=== PATIENT | female | born 1990 | race American Indian/Alaskan Native ===

== ENCOUNTER 2016-09-05 10:30 | Emergency (ER) | payer MEDICAID ==
[2016-09-05 10:40] VITALS: BP 107/64
[2016-09-05] MEDS ORDERED: TYLENOL PO ONE (10:50)
--- NOTE | 2016-09-05 10:55 | Emergency Department Report ---
Entered by SHIRLEY HOFFMAN, acting as scribe for SID MARROQUIN PA. Chief Complaint: Vaginal Bleeding Stated Complaint: 7 WKS PREGN/VAG BLEEDING Time Seen by Provider: 09/05/16 10:46 - HPI History of Present Illness: Pt that is 7 weeks c/o light vaginal bleeding with small clots for 2 days. Reports back pain and abdominal cramping Denies discharge, dysuria, nausea, and vomiting . Last was a and gave to twins. - ROS Review of Systems: All systems are negative unless stated in HPI above. - Exam Vital Signs: Vital Signs 09/05/16 10:36 Temperature 98.4 F Pulse Rate 81 Respiratory 16 Rate Blood Pressure 107/64 O2 Sat by Pulse 99 Oximetry Physical Exam: General: 25 y/o female that is well nourished, well developed, nontoxic in appearance, and in no acute distress Cardiovascular: Regular rate and rhythm Respiratory: Clear to auscultation bilaterally, no rhonchi, wheezes, or rales. Normal work of breathing. No use of accessory muscles Abdomen: nontender, nondistended, normal bowel sounds in all quadrants. No CVA tenderness MSE screening note: Focused history and physical exam performed. Due to findings the following was ordered: Patient will have bloodwork, U/S and urine ordered and placed on Main Side for further evaluation. ED Medical Decision Making - Medical Decision Making Patient seen by provider in triage area. ED Disposition for MSE Condition: Stable This documentation as recorded by the scribe,SHIRLEY HOFFMAN,accurately reflects the service I personally performed and the decisions made by ,SID MARROQUIN PA.
[2016-09-05 11:08] LABS: Basophils % (Auto) 0.9 % (0.0-1.8); Eosinophils % (Auto) 0.9 % (0.0-4.3); Hematocrit 34.9 % (30.3-42.9); Hemoglobin 11.6 gm/dl (10.1-14.3); Mean Corpuscular HGB Conc 33 % (30-34); Mean Corpuscular Hemoglobin 28 pg (28-32); Mean Corpuscular Volume 84 fl (79-97); Platelet Count 208 K/mm3 (140-440); Red Blood Count 4.17 M/mm3 (3.65-5.03); Red Cell Distribution Width 13.3 % (13.2-15.2)
[2016-09-05 11:43] LABS: Bilirubin,Urine NEG (Negative); Blood,Urine MOD (Negative); Ketones,Urine NEG (Negative); Leukocyte Esterase,Urine NEG (Negative); Mucus,Urine FEW /HPF; Nitrite,Urine NEG (Negative); Protein,Urine <15 mg/dL mg/dL (Negative); Urobilinogen,Urine < 2.0 mg/dL (<2.0)
[2016-09-05 12:23] LABS: Anion Gap 21 mmol/L; BUN/Creatinine Ratio 16.66; Blood Urea Nitrogen 10 mg/dL (7-17); Calcium 9.4 mg/dL (8.4-10.2); Carbon Dioxide 21 mmol/L (22-30); Glucose 100 mg/dL (65-100); Potassium 4.1 mmol/L (3.6-5.0); Sodium 137 mmol/L (137-145)
--- NOTE | 2016-09-05 13:08 | Ultrasound Report ---
ULTRASOUND OB LESS THAN 14 WEEKS - TRANSABDOMINAL AND TRANSVAGINAL INDICATION: Vaginal bleeding. COMPARISON: None similar at this institution. FINDINGS: Transabdominal and transvaginal pelvic sonography performed in this patient with LMP of 06/15/2016 and estimated menstrual age of 11 weeks and 5 days. 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 A nonspecific cystic focus noted along the endometrium on the left, questionably a gestational sac with mean diameter of 1.3 cm that would correspond to 6 weeks and zero days. No pole, heart rate or yolk sac identified. Endometrial thickness towards fundus estimated at 1.9 cm on the right and 2.4 cm on the left, endovaginal images 3-6. Minimal cervical canal fluid. Unremarkable, 3.6 x 2.5 x 3.8 cm right ovary. Left ovary is 3.8 x 1.4 x 4.5 cm with an approximately 2.3 cm complex/possible hemorrhagic cyst. CONCLUSION: 1. 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 If representing a gestational sac, it would correspond to approximately 6 weeks and zero days gestation with EDC of 05/01/2017. Viability however remains to be confirmed and location remains indeterminate. Please also correlate clinically and with serum beta-hCG values, not available at this time of interpretation. 2. Other findings, as above. Thank you for the opportunity to participate in this patient's care.
--- NOTE | 2016-09-06 07:20 | ED Elopement Review ---
ED Pt Elopement review - Results review Lab results: Laboratory Tests 09/05/16 09/05/16 09/05/16 10:52 10:52 10:52 WBC 9.0 RBC 4.17 Hgb 11.6 Hct 34.9 MCV 84 MCH 28 MCHC 33 RDW 13.3 Plt Count 208 Lymph % (Auto) 19.5 Harper % (Auto) 7.4 H Eos % (Auto) 0.9 Baso % (Auto) 0.9 Lymph # 1.8 Harper # 0.7 Eos # 0.1 Baso # 0.1 Seg Neutrophils % 71.3 H Seg Neutrophils # 6.5 Sodium Potassium Chloride Carbon Dioxide Anion Gap BUN Creatinine Estimated GFR BUN/Creatinine Ratio Glucose Calcium HCG, Quant 3209 H Urine Color Urine Turbidity Urine pH Ur Specific Monroe Urine Protein Urine Glucose (UA) Urine Ketones Urine Blood Urine Nitrite Urine Bilirubin Urine Urobilinogen Ur Leukocyte Esterase Urine WBC (Auto) Urine RBC (Auto) U Epithel Cells (Auto) Urine Mucus Blood Type AB POSITIVE Antibody Screen TNR MICHELLE Antibody Screen Negative 09/05/16 09/05/16 10:52 11:10 WBC RBC Hgb Hct MCV MCH MCHC RDW Plt Count Lymph % (Auto) Harper % (Auto) Eos % (Auto) Baso % (Auto) Lymph # Harper # Eos # Baso # Seg Neutrophils % Seg Neutrophils # Sodium 137 Potassium 4.1 Chloride 99.0 Carbon Dioxide 21 L Anion Gap 21 BUN 10 Creatinine 0.6 L Estimated GFR > 60 BUN/Creatinine Ratio 16.66 Glucose 100 Calcium 9.4 HCG, Quant Urine Color Yellow Urine Turbidity Clear Urine pH 5.0 Ur Specific Monroe 1.014 Urine Protein <15 mg/dl Urine Glucose (UA) Neg Urine Ketones Neg Urine Blood Mod Urine Nitrite Neg Urine Bilirubin Neg Urine Urobilinogen < 2.0 Ur Leukocyte Esterase Neg Urine WBC (Auto) 2.0 Urine RBC (Auto) 2.0 U Epithel Cells (Auto) 1.0 Urine Mucus Few Blood Type Antibody Screen MICHELLE Antibody Screen - Call Back decision Pt Call Back Decision: Pt to F/U with PMD (OB follow up)
== END 2016-09-05 15:55 | disposition left against medical advice (07) ==
LOC: ED 10:30
DX: O46.91 Antepartum hemorrhage, unspecified, first trimester (principal); Z53.21 Procedure and treatment not carried out due to patient leaving prior to being seen by health care provider; Z3A.09 9 weeks gestation of pregnancy
CPT/HCPCS: 36415; 76801; 76817; 80048; 81001; 84702; 85025; 86850; 86900; 86901; 87086

== ENCOUNTER 2016-09-06 09:10 | Emergency (ER) | payer MEDICAID ==
[2016-09-06 10:05] LABS: Basophils % (Auto) 0.8 % (0.0-1.8); Eosinophils % (Auto) 0.9 % (0.0-4.3); Hematocrit 34.4 % (30.3-42.9); Hemoglobin 11.5 gm/dl (10.1-14.3); Mean Corpuscular HGB Conc 33 % (30-34); Mean Corpuscular Hemoglobin 28 pg (28-32); Mean Corpuscular Volume 84 fl (79-97); Platelet Count 202 K/mm3 (140-440); Red Blood Count 4.08 M/mm3 (3.65-5.03); White Blood Count 9.7 K/mm3 (4.5-11.0)
--- NOTE | 2016-09-06 10:17 | Emergency Department Report ---
Entered by RIZWAN PEARL, acting as scribe for BELLA JIMENEZ NP. Chief Complaint: Vaginal Bleeding Stated Complaint: POSS MISCARRIAGE - HPI History of Present Illness: 25 y/o female, non toxic, well developed, NAD, c/o vaginal bleeding beginning yesterday. Associated clots and pelvic pain but denies fever and chills, headache, CP, SOB, or dizziness. 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 Patient Eloped yesterday. - Exam Vital Signs: Vital Signs 09/06/16 09:32 Temperature 98.5 F Pulse Rate 89 Respiratory 20 Rate Blood Pressure 108/60 O2 Sat by Pulse 100 Oximetry Physical Exam: GENERAL: The patient is a well-developed, well-nourished male in no apparent distress. Patient is alert and oriented x3. ABDOMEN: Soft, nontender, and nondistended. Positive bowel sounds. Positive pelvic tenderness. No hepatosplenomegaly was noted. No guarding or rebound tenderness, negative epigastric bruit. MSE screening note: Focused history and physical exam performed. Due to findings the following was ordered: Patient received labs yesterday: CBC, BMP, Quantitative HCG, UA Today ordered: Typing screen, HCG quantitative, CBC Charge nurse had been notified about positive miscarriage with active bleeding/ clots, and was instructed to have the patient to report to the main ED as soon as possible ED Medical Decision Making - Lab Data Result diagrams: 09/06/16 09:41 ED Disposition for MSE Condition: Stable This documentation as recorded by the scribe,RIZWAN PEARL,accurately reflects the service I personally performed and the decisions made by ,BELLA JIMENEZ, JANICE.
--- NOTE | 2016-09-06 11:58 | Emergency Department Report ---
HPI - General Chief Complaint: Vaginal Bleeding Time Seen by Provider: 09/06/16 11:01 - HPI HPI: This is a 25-year-old Afro-[place]ish female presents to the emergency department with complaint of possible miscarriage. The patient is and found out herself to be from a home test after missed menstrual cycles. Her last menstrual period was June 15. She does not currently have an PATIENT ACCOUNT SPECIALIST and is not on any vitamins. With this she is with twin gesstations delivered via . Patient was at [facility] yesterday and had blood work and an ultrasound done but was unable to stay due to the length of time waiting and did not see a physician. She had some bleeding yesterday but this morning she passed a large amount of blood and some tissue. She has been having some abdominal sharp cramping sensation as well. She denies any fever, nausea, vomiting. She is not taken anything for her symptoms prior to presentation. ED Past Medical Hx - Past Medical History Hx Asthma: Yes Additional medical history: childbirth - Surgical History Additional Surgical History: x 1-had twins - Social History Smoking Status: Never Smoker Substance Use Type: None - Medications Home Medications: Home Medications Medication Instructions Recorded Confirmed Last Taken Type HYDROcodone/APAP 5-325 [Porter 1 each PO Q6H PRN #10 tablet 09/06/16 Unknown Rx 5-325 mg TAB] ED Review of Systems ROS: Stated complaint: POSS MISCARRIAGE Other details as noted in HPI Comment: All other systems reviewed and negative Constitutional: denies: chills, fever Eyes: denies: eye pain, eye discharge, vision change ENT: denies: ear pain, throat pain Respiratory: denies: cough, shortness of breath, wheezing Cardiovascular: denies: chest pain, palpitations Gastrointestinal: abdominal pain. denies: nausea, vomiting Genitourinary: other (vaginal bleeding). denies: urgency, dysuria, discharge Musculoskeletal: denies: back pain, joint swelling, arthralgia Skin: denies: rash, lesions Neurological: denies: headache, weakness, paresthesias Physical Exam - Physical Exam Vital Signs: Vital Signs 09/06/16 09:32 Temperature 98.5 F Pulse Rate 89 Respiratory 20 Rate Blood Pressure 108/60 O2 Sat by Pulse 100 Oximetry Physical Exam: GENERAL: The patient is well-developed well-nourished. HEENT: Normocephalic. Atraumatic. Extraocular motions are intact. Patient has moist mucous membranes. Pupils equal reactive to light. NECK: Supple. Trachea is midline. CHEST/LUNGS: Clear to auscultation. There is no respiratory distress noted. HEART/CARDIOVASCULAR: Regular. There is no tachycardia. There is no gallop rub or murmur. ABDOMEN: Abdomen is soft, nontender. Patient has normal bowel sounds. There is no abdominal distention. SKIN: Skin is warm and dry. NEURO: The patient is awake, alert, and oriented. The patient is cooperative. The patient has no focal neurologic deficits. The patient has normal speech. MUSCULOSKELETAL: There is no tenderness or deformity. There is no limitation range of motion. There is no evidence of acute injury. : The cervical os appears closed. There is some mild blood seen in the vaginal vault. ED Course Vital Signs 09/06/16 09:32 Temperature 98.5 F Pulse Rate 89 Respiratory 20 Rate Blood Pressure 108/60 O2 Sat by Pulse 100 Oximetry ED Medical Decision Making - Lab Data Result diagrams: 09/06/16 09:41 - Radiology Data Radiology results: report reviewed Transvaginal/ ultrasound shows no intrauterine visualized. This may represent a spontaneous . There is no evidence for retained products of conception. 1.8 left ovarian cyst. - Medical Decision Making 25-year-old female presents with possible miscarriage as she thinks she is about 7 weeks' . She was seen here yesterday and had a beta hCG of about 3200 and ultrasound that showed questionable gestational sac but was not able to be seen by a physician at that time. She returns today with passing of some type of blood and tissue product that she brought with her to bedside. Her beta hCG at this point is 2400 and has decreased from just yesterday. An ultrasound was done to confirm miscarriage and in fact shows no intrauterine and concern for spontaneous . A pelvic exam was done that does not show any products of conception in the vagina or any significant hemorrhage. Vital signs stable throughout ED course. The patient will be discharged home to follow up with PATIENT ACCOUNT SPECIALIST. She will return to the ER with any worsening of her symptoms or any acute distress. - Differential Diagnosis , threatened miscarriage, spontaneous miscarriage, fibroids Critical Care Time: No Critical care attestation.: If time is entered above; I have spent that time in minutes in the direct care of this critically ill patient, excluding procedure time. ED Disposition Clinical Impression: Spontaneous miscarriage, Ovarian cyst Disposition: DISCHARGED TO HOME OR SELFCARE Is pt being admited?: No Condition: Stable Instructions: Spontaneous Miscarriage (ED), Ovarian Cyst (ED) Additional Instructions: Please follow-up with an PATIENT ACCOUNT SPECIALIST in the next few days. Return to the emergency department with any worsening of your symptoms or any acute distress. You've been prescribed a medication that is sedating. Therefore this medication cannot be mixed with alcohol, or taken prior to driving, working, or being responsible for children. Prescriptions: HYDROcodone/APAP 5-325 [Porter 5-325 mg TAB] 1 each PO Q6H PRN #10 tablet PRN Reason: Pain Referrals: PRIMARY CARE, [Primary Care Provider] - 3-5 Days [facility] [Provider Group] - 3-5 Days [facility] [Provider Group] - 3-5 Days [facility] [Provider Group] - 3-5 Days Time of Disposition: 13:33
[2016-09-06] MEDS ORDERED: TYLENOL PO ONE (12:39)
--- NOTE | 2016-09-06 13:15 | Ultrasound Report ---
ULTRASOUND OB LESS THAN 14 WEEKS ULTRASOUND OB TRANSVAGINAL HISTORY: Vaginal bleeding during . FINDINGS: Transabdominal and transvaginal ultrasound imaging was performed. The uterus is anteverted and measures 8 x 5 x 7 cm. No intrauterine is visualized on ultrasound. The endometrial stripe is within normal limits measuring 6.2 mm. The right ovary measures 2.7 x 2.2 x 2.6 cm. The left ovary measures 3.6 x 2.6 x 4.2 cm. A 1.8 cm cyst is identified in the left ovary. No pelvic fluid collection. IMPRESSION: No intrauterine is visualized. This may represent a spontaneous . There is no evidence for retained products of conception. 1.8 cm left ovarian cyst. Please note an ectopic is not entirely excluded at this time. Please correlate with the patient's clinical presentation and history.
[2016-09-06] MEDS ORDERED: NORCO 5/325 PO ONE (13:25)
[2016-09-06 14:08] VITALS: BP 101/69
== END 2016-09-06 13:58 | disposition home or self-care (01) ==
LOC: ED 09:10
DX: O03.9 Complete or unspecified spontaneous abortion without complication (principal); O26.891 Other specified pregnancy related conditions, first trimester; N83.202 Unspecified ovarian cyst, left side; O99.511 Diseases of the respiratory system complicating pregnancy, first trimester; Z3A.01 Less than 8 weeks gestation of pregnancy
CPT/HCPCS: 36415; 76801; 76817; 84702; 85025; 86850; 86900; 86901